=== PATIENT | male | born 1960 | race Caucasian/White ===

== ENCOUNTER 2016-03-07 09:59 | Day surgery (SDC) | payer BC ==
[~2016-03-07 09:59] MED LIST: LIDOCAINE W/ SODIUM BICARB 0.5 ML SYR ONE; Lactated Ringers 1,000 ML PRIMARY IV ONE; MIDAZOLAM 5 MG/1 ML ONE; fentaNYL Inj 100 MCG/2 ML VIAL ONE
--- NOTE | 2016-03-07 11:51 | GEN.OPNOTE ---
Colonoscopy Procedure Note Surgery Date: 03/07/16 Preoperative Diagnosis: Colon cancer screening. Postoperative Diagnosis: Colon cancer screening. Procedure: Complete colonoscopy. Surgeon: Enrike Simmons MD Anesthesia Provider: Adelfo Tobias CRNA Anesthesia Type: MAC Indications: Colon cancer screening for colon cancer prevention and/or early detection. Findings: Prep : [Very good] Cecum : [Normal] Ascending : [Normal] Transverse : [Normal] Sigmoid : [Normal] Rectum : [Normal] Digital Rectal Exam : [Prostate of normal size and consistency. No nodules.] A lubricated flexible colonoscope was inserted and passed to the blind end of the cecum. The ileocecal valve and blind end of the cecum were clearly seen. Air was aspirated as the scope was withdrawn. The entire colonoscopy was normal without polyp, tumor, neoplastic mass, infectious or inflammatory process. The scope was withdrawn completing the procedure. The patient tolerated the procedure well without complication. He was taken to outpatient surgery in stable condition. Follow-up will be in my office on an as-needed basis. We will recommend follow- up colonoscopy in 10 years time.
[2016-03-07 12:57] VITALS: RESP 16
[2016-03-07 12:58] VITALS: TEMP 97.7
== END 2016-03-07 12:20 | disposition home or self-care (01) ==
LOC: SDSC 09:59
PROVIDERS: ATTEND Surgery
DX: Z12.11 Encounter for screening for malignant neoplasm of colon (principal)
CPT/HCPCS: 45378; J2704; J3010; J2250; J7120